=== PATIENT | female | born 1985 | race Caucasian/White ===

== ENCOUNTER 2018-12-26 06:08 | Emergency (ER) | payer SELFPAY ==
[~2018-12-26] VITALS: Ht 157.5 cm; Wt 82.0 kg
[2018-12-26] MEDS ORDERED: KETOROLAC 30MG/ML VIAL IM ONE (06:45)
[2018-12-26] MEDS ORDERED: ONDANSETRON 4MG ODT PO ONE (08:00)
[2018-12-26] MEDS ORDERED: HYDROCODONE/ACETAMINOPHEN 5/325MG TABLET PO ONE (08:00)
[2018-12-26 09:20] VITALS: BP 140/75
== END 2018-12-26 09:35 | disposition home or self-care (01) ==
LOC: ER 06:39
DX: S70.01XA Contusion of right hip, initial encounter (principal); M54.5 Low back pain; W01.0XXA Fall on same level from slipping, tripping and stumbling without subsequent striking against object, initial encounter; Y93.89 Activity, other specified; Y92.018 Other place in single-family (private) house as the place of occurrence of the external cause
CPT/HCPCS: 72100; 73502; 99283; J1885; Q0162; Z7610